=== PATIENT | female | born 1975 | race Two or more races ===

== ENCOUNTER 2024-08-20 07:23 | Emergency (ER) | payer MEDICAID, OTHER ==
[~2024-08-20] VITALS: Ht 144.8 cm; Wt 80.5 kg
[2024-08-20] MEDS: cloNIDine HCL 0.1 MG TAB PO ONE (07:37)
[2024-08-20 07:52] VITALS: PULSE 73; RESP 20; O2SAT 95
[2024-08-20 07:56] LABS: Mean Corpuscular Hemoglobin 20.6 pg (28.0-32.0); Mean Corpuscular Hgb Conc. 30.8 g/dL (32.0-36.0); Platelet Count (auto) 388 10^3/uL (140-450); Red Blood Cells 5.82 10^6/uL (4.0-5.20); Red Cell Distribution Width 21.9 % (11.8-14.3); White Blood Cell 6.1 10^3/uL (4.4-10.8)
[2024-08-20 07:58] LABS: Band Neutrophils % (manual) 0; Basophils % (manual) 0 (0.0-2.0); Blast Cells 0; Metamyelocytes % 0; Myelocytes % 0; Promyelocytes % 0
[2024-08-20 08:03] LABS: Chloride 106 mmol/L (98-107); Potassium 3.7 mmol/L (3.5-5.1); Sodium 138 mmol/L (136-145)
--- NOTE | 2024-08-20 08:03 | ED.PDOC ---
History of Present Illness HPI Comments 49F presents to the ER w/ no prior hx associated to the c/c of a sore throat. Pt reports on having to cough up blood, as well as throat pain and soreness yesterday and assumes that it may be associated to her taking a "piece of plastic" out of her mouth 2 weeks ago. Pt states that she also has been getting blurry vision as well. PMHx of HTN-with no medication. SHx of . Denies chills, fever, N/V/D, SOB, CP or other associated symptoms, modifiers, or recent injuries or sick contact at this time. Chief Complaint: Sore Throat Time Seen by MD: 07:30 Primary Care Provider: SOFÍA Graham Notes: Nurses Notes, Medications, Allergies Allergies: Coded Allergies: NO KNOWN ALLERGIES (Unverified , 08/20/24) Information Source: Patient Mode of Arrival: Ambulatory Severity: Moderate Timing: Hours Duration: Since onset, Hours Prehospital treatment: None Past Medical History PAST MEDICAL HISTORY: HTN (but not taking any medication) Surgical History: MEDICAL STAFF PHYSICIAN History: No Pertinent MEDICAL STAFF PHYSICIAN History Family History Family History: Reviewed,noncontributory to illness, Unknown Social History Smoker: Non-Smoker Alcohol: Denies ETOH Use Drugs: Denies Drug Use Lives In: Home Constitutional: denies: chills, diaphoresis, fatigue, fever, malaise, sweats, weakness, others EENTM: reports: throat pain, throat swelling; denies: blurred vision, double vision, ear bleeding, ear discharge, ear drainage, ear pain, ear ringing, eye pain, eye redness, hearing loss, mouth pain, mouth swelling, nasal discharge, nose bleeding, nose congestion, nose pain, photophobia, tearing, voice changes, others Respiratory: denies: cough, hemoptysis, orthopnea, SOB at rest, shortness of breath, SOB with excertion, stridor, wheezing, others Cardiovascular: denies: chest pain, dizzy spells, diaphoresis, Dyspnea on exertion, edema, irregular heart beat, left arm pain, lightheadedness, palpitations, PND, syncope, others Gastrointestinal: reports: others ("coughed up blood"); denies: abdomen distended, abdominal pain, blood streaked bowels, constipated, diarrhea, dysphagia, difficulty swallowing, hematemesis, melena, nausea, poor appetite, poor fluid intake, rectal bleeding, rectal pain, vomiting Genitourinary: denies: abnormal vagina bleeding, burning, dyspareunia, dysuria, flank pain, frequency, hematuria, incontinence, pain, , vagina di scharge, urgency, others Neurological: denies: dizziness, fainting, headache, left sided numbness, left sided weakness, numbness, paresthesia, pre-existing deficit, right sided numbness, right sided weakness, seizure, speech problems, tingling, tremors, weakness, others Musculoskeletal: denies: back pain, gout, joint pain, joint swelling, muscle pain, muscle stiffness, neck pain, others Integumetry: denies: bruises, change in color, change in hair/nails, dryness, laceration, lesions, lumps, rash, wounds, others Allergic/Immunocompromised: denies: Difficulty Healing, Frequent Infections, Hives, Itching, others Hematologic/Lymphatic: denies: anemia, blood clots, easy bleeding, easy bruising, swollen glands, others Endocrine: denies: excessive hunger, excessive sweating, excessive thirst, excessive urination, flushing, intolerance to cold, intolerance to heat, unexplained weight gain, unexplained weight loss, others Psychiatric: denies: anxiety, bipolar disorder, depression, hopeless, panic disorder, schizophrenia, sleepless, suicidal, others All Other Systems: Reviewed and Negative Physical Exam General Appearance: Mild Distress, Normal HEENT: Normal ENT Inspection, Pharynx Normal, TMs Normal Neck: Full Range of Motion, Non-Tender, Normal, Normal Inspection Respiratory: Chest Non-Tender, Lungs Clear, No Accessory Muscle Use, No Respiratory Distress, Normal Breath Sounds Cardiovascular: No Edema, No JVD, No Murmur, No Gallop, Normal Peripheral Pulses, Regular Rate/Rhythm Breast Exam: Deferred Gastrointestinal: No Organomegaly, Non Tender, No Pulsatile Mass, Normal Bowel Sounds, Soft Genitalia: Deferred Pelvic: Deferred Rectal: Deferred Extremities: No calf tenderness, Normal capillary refill, Normal inspection, Normal range of motion, Non-tender, No pedal edema Musculoskeletal : Apperance: Normal Neurologic: Alert, microbiology director II-XII nml as Tested, No Motor Deficits, Normal Affect, Normal Mood, No Sensory Deficits Cerebellar Function: Normal Reflexes: Normal Skin: Dry, Normal Color, Warm Peripheral Pulses: 3+ Radial (R), 3+ Radial (L) Lymphatic: No Adenopathy Was a procedure done? Was a procedure done?: No Differential Dx Considerations may include: Hypertension Electrolyte imbalance X-Ray, Labs, Meds, VS Vital Signs Date Time Temp Pulse Resp B/P (MAP) Pulse Ox O2 Delivery O2 Flow Rate FiO2 08/20/24 09:44 68 15 116/71 (86) 98 08/20/24 08:37 72 08/20/24 08:37 137/79 08/20/24 08:30 73 13 137/79 (98) 94 08/20/24 08:22 73 13 145/85 (105) 96 08/20/24 07:52 73 20 95 Room Air* 0 21 08/20/24 07:52 73 20 177/84 (115) 95 08/20/24 07:37 211/119 08/20/24 07:36 88 17 97 08/20/24 07:36 88 17 211/119 (149) 97 08/20/24 07:28 99.4 96 18 215/112 (146) 99 193/109 (137) Lab Test 08/20/24 07:45 Range/Units White Blood Count 6.1 4.4-10.8 10^3/uL Red Blood Count 5.82 H 4.0-5.20 10^6/uL Hemoglobin 12.0 L 12.2-16.2 g/dL Hematocrit 39.0 36.0-46.0 % Mean Corpuscular Volume 67.0 L 80.0-100.0 fL Mean Corpuscular Hemoglobin 20.6 L 28.0-32.0 pg Mean Corpuscular Hemoglobin Concent 30.8 L 32.0-36.0 g/dL Red Cell Distribution Width 21.9 H 11.8-14.3 % Platelet Count 388 140-450 10^3/uL Mean Platelet Volume 6.6 L 6.9-10.8 fL Neutrophils (%) (Auto) 37.0-80.0 % Lymphocytes (%) (Auto) 10.0-50.0 % Monocytes (%) (Auto) 0.0-12.0 % Basophils (%) (Auto) 0.0-2.0 % Neutrophils # (Auto) 1.6-8.6 10 ^3/uL Lymphocytes # (Auto) 0.4-5.4 10 ^3/uL Monocytes # (Auto) 0-1.3 10 ^3/uL Differential Total Cells Counted 100.0 100 Neutrophils % (Manual) 59 37.0-80.0 Band Neutrophils % (Manual) 0 Lymphocytes % (Manual) 27 10.0-50.0 Monocytes % (Manual) 6 0-12 Eosinophils % (Manual) 1 0-7 Basophils % (Manual) 0 0.0-2.0 Metamyelocytes % (manual) 0 Myelocytes % (Manual) 0 Promyelocytes % (Manual) 0 Blast Cells % (Manual) 0 Reactive Lymphocytes 7 Platelet Estimate Adequate Hypochromasia (manual) Moderate Microcytosis Moderate Thalia Cells Few Sodium Level 138 136-145 mmol/L Potassium Level 3.7 3.5-5.1 mmol/L Chloride Level 106 98-107 mmol/L Carbon Dioxide Level 25 20-31 mmol/L Anion Gap 7 5-15 Blood Urea Nitrogen 9 9-23 mg/dL Creatinine 0.78 0.550-1.02 mg/dL Glomerular Filtration Rate Calc 93 >90 mL/min BUN/Creatinine Ratio 11.5 10.0-20.0 Serum Glucose 107 H 74-106 mg/dL Calcium Level 9.4 8.7-10.4 mg/dL Current Medications Medications (Trade) Dose Ordered Sig/Farheen Route Start Time Stop Time Status Last Admin Clonidine HCl (Catapres Tablet) 0.2 mg ONCE ONCE PO 08/20/24 07:45 08/20/24 07:46 DC 08/20/24 07:37 Patient alert. Came in because of coughing up sputum. She had a foreign body lodged few weeks ago which was coughed up this morning. Vitals stable. Denies chest pain. Denies shortness of breath. WBC within normal limits. Blood pressure elevated. Possible anxiety. Was given clonidine. She does not take any medication for blood pressure. Denies headache. Denies dizziness. Explained to the patient. Was told to follow up with her primary care physician. Was told to come back if there is any problem. Time of 1ST Reevaluation: 08:00 Reevaluation 1ST: Unchanged Time of 2ND Reevaluation: 10:12 Reevaluation 2ND: Improved Patient Education/Counseling: Diagnosis, Treatment, Prognosis Family Education/Counseling: No Family Present Departure 1 Departure Time of Disposition: 10:13 Impression: Primary Impression: HTN (hypertension) Qualified Codes: I10 - Essential (primary) hypertension Disposition: 01 HOME / SELF CARE / HOMELESS Condition: Good Discharged With: Self Critical Care Note Critical Care Time?: No Stability Stability form required: No Heart Score Heart Score: Heart Score Response (Comments) Value History N/A 0 EKG N/A 0 Age N/A 0 Risk Factors N/A 0 Troponin N/A 0 Total 0 I personally scribed for JT WELCH MD ([email or web address]) on 08/20/24 at 08:03. Electronically submitted by Job Hopkins ([email or web address]). JT WELCH MD Aug 20, 2024 08:03
[2024-08-20 08:04] LABS: Anion Gap 7 (5-15); Carbon Dioxide 25 mmol/L (20-31)
[2024-08-20 08:05] LABS: Calcium 9.4 mg/dL (8.7-10.4)
[2024-08-20 08:09] LABS: BUN/Creatinine Ratio 11.5 (10.0-20.0); Blood Urea Nitrogen 9 mg/dL (9-23); Glucose 107 mg/dL (74-106)
[2024-08-20 08:49] LABS: Eosinophils % (manual) 1 (0-7); Lymphocytes % (manual) 27 (10.0-50.0); Monocytes % (manual) 6 (0-12); Reactive Lymphocytes 7
[2024-08-20 08:50] LABS: Hypochromia Moderate; Platelet Estimate Adequate
[2024-08-20 09:44] VITALS: BP 116/71; PULSE 68; RESP 15; O2SAT 98
== END 2024-08-20 10:33 | disposition home or self-care (01) ==
LOC: ER 07:23
DX: I10 Essential (primary) hypertension (principal); Z98.890 Other specified postprocedural states
CPT/HCPCS: 36415; 80048; 85007; 85027